=== PATIENT | female | born 1960 | race Caucasian/White ===

== ENCOUNTER → 2022-03-02 | Outpatient (CLI) | payer OTHER ==
--- NOTE | 2022-03-03 08:03 | MM ---
Reason for Exam: Screening (asymptomatic). Last mammogram was performed 1 year(s) and 11 month(s) ago. Patient History: Menarche at age 15. First Full-Term at age 20. Postmenopausal. Paternal aunt had breast cancer. Risk Values: Brittaney 5 year model risk: 1.2%. NCI Lifetime model risk: 5.7%. Prior Study Comparison: 11/22/2018 Right MG diagnostic mammo RT w CAD - 2, [facility]. 03/27/2020 Bilateral MG screening mammo w CAD - 2, [facility]. 04/10/2020 Right MG diagnostic mammo RT w CAD - 2, [facility]. Tissue Density: The breast tissue is heterogeneously dense. This may lower the sensitivity of mammography. Findings: Analyzed By CAD. Asymmetric nodular density upper outer right breast posterior one third requires additional evaluation. No suspicious calcifications are seen within either breast. Overall Assessment: Incomplete: need additional imaging evaluation, BI-RAD 0 Management: Diagnostic Mammogram of the right breast. A clinical breast exam by your physician is recommended on an annual basis and results should be correlated with mammographic findings. Electronically signed and approved by: Glynn Yap M.D. Radiologis
== END | disposition home or self-care (01) ==
LOC: MERGE 10:20 → RADMAMWWP 10:29
PROVIDERS: ATTEND Internal Medicine
DX: Z12.31 Encounter for screening mammogram for malignant neoplasm of breast (principal); Z78.0 Asymptomatic menopausal state; Z80.3 Family history of malignant neoplasm of breast
CPT/HCPCS: 77067

== ENCOUNTER → 2022-03-08 | Outpatient (CLI) | payer OTHER ==
--- NOTE | 2022-03-08 11:32 | MM ---
Reason for Exam: Additional evaluation requested from abnormal screening. Last screening mammogram was performed less than 1 month ago. Patient History: Menarche at age 15. First Full-Term at age 20. Postmenopausal. Paternal aunt had breast cancer. Risk Values: Brittaney 5 year model risk: 1.2%. NCI Lifetime model risk: 5.7%. Prior Study Comparison: 03/27/2020 Bilateral MG screening mammo w CAD - 2, [facility]. 04/10/2020 Right MG diagnostic mammo RT w CAD - 2, [facility]. 03/02/2022 Bilateral MG screening mammo w CAD, [facility]. Tissue Density: Right: The breast tissue is heterogeneously dense. This may lower the sensitivity of mammography. Findings: Analyzed By CAD. Persistent density upper outer collection fine compression. No suspicious calcifications. Overall Assessment: Incomplete: need additional imaging evaluation, BI-RAD 0 Management: Diagnostic Breast Ultrasound of the right breast. A clinical breast exam by your physician is recommended on an annual basis and results should be correlated with mammographic findings. This exam should not preclude additional follow-up of suspicious palpable abnormalities. Results were given to the patient verbally at the time of exam. Electronically signed and approved by: Ibrahima Beltrán M.D. Radiologis
--- NOTE | 2022-03-08 12:03 | USB ---
Reason for Exam: Additional evaluation requested from abnormal screening. Patient History: Menarche at age 15. First Full-Term at age 20. Postmenopausal. Paternal aunt had breast cancer. Risk Values: Brittaney 5 year model risk: 1.2%. NCI Lifetime model risk: 5.7%. Technique: Method: Targeted. Prior Study Comparison: 03/27/2020 Bilateral MG screening mammo w CAD - 2, [facility]. 04/10/2020 Right MG diagnostic mammo RT w CAD - 2, [facility]. 03/02/2022 Bilateral MG screening mammo w CAD, [facility]. Findings: The upper outer quadrant of the right breast was scanned. Finding 1: Simple cyst. Laterality: Right. Size 4 x 3 x 6 mm. 10 O'clock Quadrant: Upper outer. 6 cm cm from nipple. Shape: Round or Oval. Finding 2: Simple cyst. Laterality: Right. Size 4 x 2 x 3 mm. 12 O'clock Quadrant: Upper outer. 8 cm cm from nipple. Shape: Round or Oval. There is a 6 mm anechoic structure at the 10:00 position of the right breast There is a 4 mm anechoic structure oval well-circumscribed at the 12:00 position of the right breast. Overall Assessment: Suspicious, BI-RAD 4 Management: Ultrasound Core Biopsy of the right breast. A clinical breast exam by your physician is recommended on an annual basis and results should be correlated with mammographic findings. Electronically signed and approved by: Ibrahima Beltrán M.D. Radiologis
== END | disposition home or self-care (01) ==
LOC: RADMAMWWP 10:19
PROVIDERS: ATTEND Internal Medicine
DX: R92.8 Other abnormal and inconclusive findings on diagnostic imaging of breast (principal); Z78.0 Asymptomatic menopausal state; Z80.3 Family history of malignant neoplasm of breast
CPT/HCPCS: 77065

== ENCOUNTER → 2022-03-18 | Day surgery (SDC) | payer OTHER ==
--- NOTE | 2022-03-18 12:07 | MM ---
Reason for Exam: Post Procedure Mammogram. Last screening mammogram was performed less than 1 month ago. Patient History: Menarche at age 15. First Full-Term at age 20. Postmenopausal. Paternal aunt had breast cancer at or over age 50. Risk Values: Brittaney 5 year model risk: 1.2%. NCI Lifetime model risk: 5.7%. Prior Study Comparison: 04/10/2020 Right MG diagnostic mammo RT w [facility] - [address] [place] [address]. 03/02/2022 Bilateral MG screening mammo w [facility], [facility]. 03/08/2022 Right MG work up mamm w CAD RT, [facility]. Tissue Density: Right: The breast tissue is heterogeneously dense. This may lower the sensitivity of mammography. Findings: Biopsy clip is in the posterior 9:00 position right breast. This area corresponds to a density in the right breast previous mammograms. This may be a cyst, pathology is pending. Overall Assessment: Probably benign, BI-RAD 3 Management: Diagnostic Mammogram of the right breast in 6 months. Pathology is pending. Clinical management be based on the pathology. Follow-up mammogram can be performed in 6 months for benign concordant results A clinical breast exam by your physician is recommended on an annual basis and results should be correlated with mammographic findings. This exam should not preclude additional follow-up of suspicious palpable abnormalities. Results were given to the patient verbally at the time of exam. Electronically signed and approved by: Fabrizio Bond D.O. Radiologis
--- NOTE | 2022-03-28 11:55 | USB ---
Risk Values: Brittaney 5 year model risk: 1.2%. NCI Lifetime model risk: 5.7%. Prior Study Comparison: 04/10/2020 Right MG diagnostic mammo RT w [facility] - 2, [facility]. 03/02/2022 Bilateral MG screening mammo w [facility], [facility]. 03/08/2022 Right MG work up mamm w CAD RT, [facility]. Pathology Description: Location: 10 o'clock, upper outer quadrant, middle. Marker Left Behind. Cores: 3 Skin Nicks: 1 The procedure of ultrasound guided core biopsy was explained to the patient. Benefits, alternatives, and risks were discussed. An informed consent was then obtained. A timeout was performed. The patient was placed in supine positioning for imaging and for the procedure. The overlying skin was prepped and draped in usual sterile fashion. Lidocaine was used as anesthetic into the skin and subcutaneous tissue up to area of concern in the right breast. A small skin leon was made with surgical scalpel. Under ultrasound guidance, a 12-gauge vacuum assisted biopsy gun device was used to obtain 3 core samples. A biopsy clip was left in lesion. Wing core marker was placed. The patient tolerated the procedure well without any immediate complication. The patient was kept in the radiology department for short stay after the procedure and then discharged home in stable condition. Postprocedure mammogram: The patient was transferred to mammography for physician ordered post procedure mammogram for clip placement verification. Clip is in the expected location appears to correspond with prior mammographic and. Impression: Successful ultrasound guided core biopsy of area of concern in the right breast, full pathology results to follow. Recommendations: 1. Recommendations are pending pathology results. Pathology Results: Result: Benign, Fibrocystic change. RIGHT BREAST, 10:00 POSITION, CORE BIOPSY: Fibrocystic change with columnar cell change, focal fibrotic cyst lining and focal microcalcification. Current specimen negative for in situ or invasive carcinoma. Overall Assessment: Benign Management: Diagnostic Mammogram of the right breast in 6 months. Electronically signed and approved by: Fabrizio Bond D.O. Radiologis
== END ==
LOC: RADUSWWP 10:16
PROVIDERS: ATTEND Internal Medicine
DX: N60.11 Diffuse cystic mastopathy of right breast (principal); R92.8 Other abnormal and inconclusive findings on diagnostic imaging of breast
CPT/HCPCS: 88305; 77065; 19083; A4648

== ENCOUNTER → 2022-08-16 | Outpatient (CLI) | payer OTHER ==
--- NOTE | 2022-08-16 15:32 | CT ---
EXAMINATION TYPE: CT chest w con CT DLP: 247.1 mGycm, Automated exposure control for dose reduction was used. DATE OF EXAM: 08/16/2022 2:45 PM COMPARISON: None CLINICAL INDICATION:Female, 61 years old with history of R91.1 SOLITARY PULMONARY NODULE; [facility], TECHNIQUE: Multiple axial images were obtained through the chest following the administration of 100 cc of Isovue 300. Subsequently after injection there was contrast extravasation. Patient refused fanta tional attempt at injection. Examination was then done without contrast. FINDINGS: LUNGS/ PLEURA: No pneumothorax, pleural effusion, or focal consolidation. Left lower lobe 1.4 x 0.8 c m noncalcified pulmonary nodule (series 5, image 32). AIRWAY: Patent and unremarkable.. HEART: Size within normal limits. No pericardial effusion. MEDIASTINUM: No gross evidence of adenopathy. VASCULATURE: No aortic aneurysm. MUSCULOSKELETAL: No acute osseous abnormalities. Partial visualization of anterior cervical fusion valadez rdware. Mild multilevel degenerative disc disease. SOFT TISSUES/LYMPH NODES: Unremarkable. LOWER NECK: No significant findings. UPPER ABDOMEN: Contrast is demonstrated within both collecting systems from prior IV contrast demonst ration. IMPRESSION: Left lower lobe 1.4 cm pulmonary nodule. PET/CT is recommended.
== END | disposition home or self-care (01) ==
LOC: RADCTMAIN 13:55
PROVIDERS: ATTEND Internal Medicine Critical Care Medicine
DX: R91.1 Solitary pulmonary nodule (principal)
CPT/HCPCS: 71260; Q9967

== ENCOUNTER → 2022-09-14 | Outpatient (CLI) | payer OTHER ==
--- NOTE | 2022-09-14 14:36 | MM ---
Reason for Exam: Follow-up at short interval from prior study. Last screening mammogram was performed 6 month(s) ago. Patient History: Menarche at age 15. First Full-Term at age 20. Postmenopausal. 03/18/2022, Benign US biopsy breast VAD RT on the right side. Paternal aunt had breast cancer at or over age 50. Risk Values: Brittaney 5 year model risk: 1.5%. NCI Lifetime model risk: 6.7%. Prior Study Comparison: 03/02/2022 Bilateral MG screening mammo w CAD, [facility]. 03/08/2022 Right MG work up mamm w CAD RT, [facility]. 03/18/2022 Right MG diagnostic mammo RT wo CAD, [facility]. Tissue Density: Right: The breast tissue is heterogeneously dense. This may lower the sensitivity of mammography. Findings: Analyzed By CAD. Pattern appears stable. No significant interval change is evident. A core marker is within the right breast. Overall Assessment: Benign, BI-RAD 2 Management: Screening Mammogram of both breasts in 1 year. A clinical breast exam by your physician is recommended on an annual basis and results should be correlated with mammographic findings. This exam should not preclude additional follow-up of suspicious palpable abnormalities. Results were given to the patient verbally at the time of exam. Electronically signed and approved by: Fabrizio Bond D.O. Radiologis
== END | disposition home or self-care (01) ==
LOC: RADMAMWWP 12:37
PROVIDERS: ATTEND Internal Medicine
DX: N63.10 Unspecified lump in the right breast, unspecified quadrant (principal); Z78.0 Asymptomatic menopausal state; Z80.3 Family history of malignant neoplasm of breast
CPT/HCPCS: 77065

== ENCOUNTER → 2022-11-10 | Outpatient (CLI) | payer OTHER ==
--- NOTE | 2022-11-10 15:55 | USB ---
Reason for Exam: Follow-up at short interval from prior study. Patient History: Menarche at age 15. First Full-Term at age 20. Postmenopausal. 03/18/2022, Benign US biopsy breast VAD RT on the right side. Paternal aunt had breast cancer at or over age 50. Risk Values: Brittaney 5 year model risk: 1.5%. NCI Lifetime model risk: 6.7%. Technique: Method: Targeted. Prior Study Comparison: 03/08/2022 Right MG work up mamm w CAD RT, [facility]. 03/18/2022 Right MG diagnostic mammo RT wo CAD, [facility]. 09/14/2022 Right MG diagnostic mammo RT w CAD, [facility]. Findings: The upper outer quadrant of the right breast, the axilla of the right breast and the retroareolar of the right breast were scanned. Targeted ultrasound right breast upper outer quadrant 9:00 to 12:00 including the subareolar region and axilla. At the 12:00 position, 8 cm from the nipple, there is a 4 x 4 x 2 mm oval cyst now containing some internal debris. The previously biopsied 10:00 lesion, 6 cm from the nipple is no longer identified. No other solid or cystic lesion or axillary lymphadenopathy. Overall Assessment: Benign, BI-RAD 2 Management: Screening Mammogram of both breasts in 4 months. 1. Patient should continue monthly self breast exams. 2. A clinical breast exam by your physician is recommended on an annual basis. 3. This exam should not preclude additional follow-up of suspicious palpable abnormalities. Electronically signed and approved by: Anthony Jenkins M.D. Radiologist
== END | disposition home or self-care (01) ==
LOC: RADUSWWP 15:01
PROVIDERS: ATTEND Internal Medicine
DX: N63.10 Unspecified lump in the right breast, unspecified quadrant (principal); Z78.0 Asymptomatic menopausal state; Z80.3 Family history of malignant neoplasm of breast

== ENCOUNTER → 2023-02-07 | Outpatient (CLI) | payer OTHER ==
--- NOTE | 2023-02-09 08:48 | CT ---
EXAMINATION TYPE: CT chest w con DATE OF EXAM: 02/07/2023 COMPARISON: 08/16/2022 HISTORY: f/u pulmonary nodule CT DLP: 189.50 mGycm Automated exposure control for dose reduction was used. CONTRAST: CT scan of the chest is performed with IV Contrast, patient injected with 90 mL of Isovue 300. FINDINGS: LUNGS: Left lower lobe pulmonary nodule is noted to measure 1.5 x 0.8 cm versus 1.4 x 0.8 cm. There i s eccentric calcification noted. Consider PET/CT correlation as was recommended previously. No additi onal nodule is seen at this time. Parenchymal scarring right lower lobe. MEDIASTINUM: There are no greater than 1 cm hilar or mediastinal lymph nodes. No pericardial effusi on is seen. Thoracic aorta is of normal caliber. The heart is not enlarged. UPPER ABDOMEN: No significant abnormality appreciated. OTHER: No additional significant abnormality is seen. IMPRESSION: Left lower lobe pulmonary nodule is noted to measure 1.5 x 0.8 cm versus 1.4 x 0.8 cm. There is eccen tric calcification noted. Consider PET/CT correlation as was recommended previously.
== END | disposition home or self-care (01) ==
LOC: RADCTMAIN 14:02
PROVIDERS: ATTEND Internal Medicine Critical Care Medicine
DX: R91.1 Solitary pulmonary nodule (principal)
CPT/HCPCS: 71260; Q9967

== ENCOUNTER → 2023-03-16 | Outpatient (CLI) | payer OTHER ==
--- NOTE | 2023-03-17 08:41 | MR ---
EXAMINATION TYPE: MR lumbar spine wo con DATE OF EXAM: 03/16/2023 COMPARISON: None HISTORY: Low back pain from shoulder blades down to bottom of back. TECHNIQUE: Multiplanar, multisequence images of the lumbar spine were acquired without IV contrast. FINDINGS: Lumbar segments are intact. No paraspinal masses are identified. Conus medullaris has a normal appe arance. Multilevel disc desiccation. T12-L1: Right central disc protrusion with mild effacement of anterior thecal sac. Foramina are paten t bilaterally. L1-L2: Normal disc appearance without desiccation. No herniation, protrusion or disc bulging. No ca nal stenosis is present. Foramina are patent bilaterally. L2-L3: No herniation, protrusion or disc bulging. No canal stenosis is present. The lateral facet a rthropathy. Foramina are patent bilaterally. L3-L4: Broad-based disc bulge with ligamentum flavum buckling and facet arthropathy contribute to mil d to moderate spinal canal stenosis. Mild bilateral neural foraminal stenosis. L4-L5: Right foraminal disc protrusion. Bilateral facet arthropathy and ligament flavum buckling. No significant central canal stenosis. Mild left and moderate right neural foraminal stenosis. L5-S1: No herniation, protrusion or disc bulging. No canal stenosis is present. Bilateral facet arth ropathy. Foramina are patent bilaterally. IMPRESSION: 1. T12-L1 and L4-L5 disc herniation as described above. 2. Multilevel facet arthropathy most pronounced at L3-L4 with mild to moderate spinal canal stenosis .
== END | disposition home or self-care (01) ==
LOC: RADMRIMAIN 13:04
PROVIDERS: ATTEND Orthopaedic Surgery
DX: M47.816 Spondylosis without myelopathy or radiculopathy, lumbar region (principal); M51.25 Other intervertebral disc displacement, thoracolumbar region; M48.061 Spinal stenosis, lumbar region without neurogenic claudication
CPT/HCPCS: 72148

== ENCOUNTER → 2023-07-06 | Outpatient (CLI) | payer OTHER ==
[2023-07-06 14:36] VITALS: BP 123/82; PULSE 103; RESP 16; TEMP 97.6
--- NOTE | 2023-07-06 14:42 | P.PAINPG ---
Objective - Vital Signs Vital signs: Intake & Output 07/05/23 07/06/23 07/06/23 18:59 06:59 18:59 Weight 63.503 kg PQRS Measure Charge Sheet Comment: HISTORY OF PRESENT ILLNESS: A 62 yr old female as a referral from [facility] presents today w severe and chronic LBP x 5 mo secondary to DDD, spondylosis and facet arthropathy without myelopathy for evaluation. Pt states pain level is provoked at 7/10 in intensity, constant, localized in the R lower lumbar spine, predominantly axial, achy in character w occasional shooting pain towards the back of the RLE. Pain is provoked by lifting. Pain is alleviated by PT years ago, physician guided exercises & stretches x 6 mo, chiropractic treatments monthly for years which ended 6 mo ago, heat, ice, medications (Neurontin, Flexeril, Ibu), repositioning and rest. Oswestry axial pain score at 18. PMH: OA, GERD, Hyperlipidemia PSH: Denies SH: Negative x3 FH: Non contributory All: See list Meds: See list REVIEW OF ORGAN SYSTEMS: CONSTITUTIONAL: No fevers or chills. No recent weight loss. NEUROLOGICAL: + numbness and tingling along the distal extremities. No seizure disorders or headaches. MUSCULOSKELETAL: + pain PSYCHIATRIC: Denies current depression or suicidal thoughts. Physical Examinations : Constitutional : Cooperative , not in acute distress . Neurologic : Cranial nerve II to XII intact. No focal neurological deficits. Psychiatric : alert & oriented x 3. Matching mood & appropriate affect. Judgment & insight intact. Musculoskeletal : Cervical Spine Motor strength in the deltoid and biceps: Normal right side. Normal Left side Motor strength biceps and the wrist extensors: Normal right side . Normal left side Motor strength in the triceps muscle: Normal right side. Normal left side Deep tendon reflexes: Normal at the biceps. Normal at Brachioradialis. Normal at triceps Vertebral body tenderness to deep palpation over Cervical facet loading test: positive bilaterally Spurling test: positive bilaterally Neck distraction test: positive bilaterally Izabel sign: positive bilaterally Lumbar spine Motor strength lower extremities ,thigh and legs 5/5 Right side , 5/5 Left side Deep tendon reflexes : Normal Knee Jerk. Normal Ankle Jerk Vertebral body tenderness over L3 Donohue Test positive over L3-L4 Lumbar facet Loading Test: positive Right / positive Left Range of motion of the lumbar spine Flexion 30 degrees, extension 10 degrees Straight Leg Raise test: Left/ Right positive at degree Eladio test: positive right / positive left. Severe tenderness over the Sacroiliac joint on the Right / Left sides Gaenslen test: positive bilaterally Seated flexion test: positive bilaterally. Sacral spine : Severe tenderness over the Sacroiliac joint: right side / left side Range of motion: Flexion of the lumbar spine <60 degrees Range of motion: Extension of the lumbar spine <20 degrees Gaenslen's Test positive Eladio test: positive right side / left side Thigh Thrust Test Sacral Thrust Test Imaging: MRI noncontrast of the lumbar spine from 03/16/23 reviewed Assessment/ Plan : Lumbar DDD Recommendation of R TFESI L3-L4 #1. May need a series of injections for optimal pain relief. Risks, benefits of procedure discussed and patient verbalized understanding. Admits to anti- coagulant use or medical history of diabetes. Protocol for discontinuation/ continuation of medications dena procedure discussed. Minimal anesthesia provided, if clinically indicated, consisting of Versed and Fentanyl. All questions answered. I have spent greater than 30 minutes on patient care today. Dr Olguin was available by phone for the evaluation of this patient. The time was used to review the medical records including relevant urine studies and Prescription history (MAPs), review of the available imaging, evaluation and examination of the patient, coordination of care with the medical staff and if applicable referring physicians, as well as creation of the medical record Home Medications: Ambulatory Orders Albuterol Inhaler [Ventolin Hfa Inhaler] 1 - 2 puff INHALATION RT-Q6H PRN 03/11/22 Albuterol Sulfate [Proair Hfa] 1 - 2 puff INHALATION Q6HR PRN 03/11/22 Atorvastatin [Lipitor] 10 mg PO DAILY 03/11/22 Benzonatate [Tessalon Perles] 100 mg PO TID PRN 03/11/22 Celecoxib [CeleBREX] 100 mg PO BID 03/11/22 Cetirizine HCl [Zyrtec] 10 mg PO DAILY 03/11/22 Citalopram Hydrobromide [CeleXA] 20 mg PO DAILY 03/11/22 Famotidine [Pepcid] 20 mg PO HS 03/11/22 Fluticasone Nasal [place] [Flonase Nasal [place]] 1 spray EA NOSTRIL DAILY 03/11/22 Fluticasone Propionate [Flonase Allergy Relief] 1 spray EA NOSTRIL DAILY 03/11/22 Gabapentin [Neurontin] 300 mg PO TID 03/11/22 Ibuprofen [Motrin] 600 mg PO Q8HR PRN 03/11/22 Montelukast [Singulair] 10 mg PO DAILY 03/11/22 Tiotropium 18 Mcg/Puff [Spiriva] 1 puff INHALATION DAILY 03/11/22 oxyBUTYnin chloride [Ditropan] 5 mg PO DAILY 03/11/22 Controlled Substance Measures - Controlled Substance Measures Is patient prescribed a controlled substance at discharge?: No
== END ==
LOC: PNWHC3 13:37
PROVIDERS: ATTEND Specialist
DX: M51.16 Intervertebral disc disorders with radiculopathy, lumbar region (principal); M51.26 Other intervertebral disc displacement, lumbar region; M19.90 Unspecified osteoarthritis, unspecified site; K21.9 Gastro-esophageal reflux disease without esophagitis; E78.5 Hyperlipidemia, unspecified
CPT/HCPCS: 99211

== ENCOUNTER 2023-08-29 12:23 | Day surgery (SDC) | payer OTHER ==
[~2023-08-29 12:23] MED LIST: LACTATED RINGERS 1,000 ML IV SCH
[2023-08-29 12:40] VITALS: TEMP 97.8
[2023-08-29] MEDS ORDERED: methylPREDNISolone ACETATE 80 MG/ML 1 ML VIAL ONE (12:58)
[2023-08-29] MEDS ORDERED: IOPAMIDOL M200 10 ML VIAL ONE (12:58)
--- NOTE | 2023-08-29 13:05 | P.PCN ---
Date of Procedure: 08/29/23 Procedure(s) Performed: PREOPERATIVE DIAGNOSIS: 1- Lumbar Degenerative Disc Diseases 2-Lumbar spondylosis with Facet arthropathy without myelopathy. 3-lumbar spinal stenosis POSTOPERATIVE DIAGNOSIS: 1-lumbar degenerative disc disease. 2-lumbar spondylosis with facet arthropathy without myelopathy. 3-lumbar spinal stenosis. PROCEDURE 1. Lumbar epidural steroid injection under fluoroscopic guidance at the L3-4 level. (Fluoroscopy imaging was available in radiology department) 2. Lumbar epidurogram. ANESTHESIA: Lidocaine 1% 3 and then only. EBL: Minimal PROCEDURE INDICATION: The patient with low back pain and radiculitis symptoms unresponsive to conservative treatment. Fluoroscopy was used to optimize visualization of the needle placement and to maximize safety. PROCEDURE DESCRIPTION / TECHNIQUE: The patient was seen and identified in the preoperative area. Risks, benefits, complications including but not limited to infections ,bleeding ,allergic reaction to the medications ,nerve damage and not complete pain releife , and alternatives were discussed with the patient. The patient agreed to proceed with the procedure and signed the consent, and vital signs were stable. Patient was taken to the OR and time out was completed. The patient was placed in the prone position on procedure table and a pillow was placed under the abdomen to reduce lumbar lordosis. The lumbosacral area was prepped and draped in the usual sterile fashion.ere closely monitored during the procedure. Vital signs was monitered during the entire procedure. Using anterior-posterior fluoroscopy, the L3-4 interlaminar space was identified and the skin over this site was marked and then infiltrated with 1% lidocaine subcutaneously. Subsequently, a 20-gauge Tuohy epidural needle was inserted and advanced toward the epidural space using the ``Loss of resistance technique and guided by AP and lateral fluoroscopy. The correct needle position in the epidural space was verified with the injection of 2 mL of the water soluble contrast dye Isovue 200 contrast and observing an excellent epidurogram with the epidural spread of the dye, after negative aspiration for blood and CSF and in the absence of paresthesias. Again after negative aspiration, a 6 ml mixture containing 80 mg of Depo-medrol ( Preservetive Free ), and 2 ml of preservative free Normal Saline, and 2 ml of preservative free lidocaine 1% solution was injected and a washout of epidurogram was seen. Needle was withdrawn intact, skin was cleansed, and bandages were applied. COMPLICATIONS: None DISPOSITION / PLANS: The patient was placed in a supine position and transferred to the recovery area in a stable condition for observation. There was no evidence of lower extremity motor or sensory deficit after the procedure. Patient was discharged from the recovery room after meeting discharge criteria. Home discharge instructions were given to the patient by the staff. The patient was reexamined prior to discharge. The patient will schedule a follow up in the clinic in 2-4 weeks.
[2023-08-29 13:53] VITALS: BP 112/69; PULSE 88; RESP 20
--- NOTE | 2023-08-29 16:57 | FL ---
Fluoroscopy INDICATION: Pain FINDINGS: Fluoroscopy time: 3.4 seconds. Total dose area product (DAP) in uGy*m?, mGy*cm? (or similar): 0.72318 Images obtained: 3. IMPRESSION: 1. Documentation of fluoroscopy.
== END 2023-08-29 13:40 | disposition home or self-care (01) ==
LOC: ORPAIN 12:23
PROVIDERS: ATTEND Specialist
DX: M47.816 Spondylosis without myelopathy or radiculopathy, lumbar region (principal); M48.061 Spinal stenosis, lumbar region without neurogenic claudication; M51.36 Other intervertebral disc degeneration, lumbar region
CPT/HCPCS: 62323; J1040; Q9966

== ENCOUNTER → 2023-09-13 | Outpatient (CLI) | payer OTHER ==
--- NOTE | 2023-09-13 14:16 | P.PAINPG ---
PQRS Measure Charge Sheet Comment: HISTORY OF PRESENT ILLNESS: A 62 yr old female presents today w severe and chronic LBP x 5 mo secondary to DDD, spondylosis and facet arthropathy without myelopathy for evaluation s/p TONY L3-L4 #1. Pt states she experienced 90 % pain relief x 3 wks s/p procedure. Pt states pain level is provoked at 3/10 in intensity, constant, localized in the R lower lumbar spine, predominantly axial, achy in character without shooting pain. Pain is provoked by lifting. Pain is alleviated by PT years ago, physician guided exercises & stretches x 6 mo, chiropractic treatments monthly for years which ended 6 mo ago, heat, ice, medications, repositioning and rest. Oswestry axial pain score at 18. Interventional procedures include TONY L3-L4 x1 Medications include Neurontin, Flexeril, Ibu REVIEW OF ORGAN SYSTEMS: CONSTITUTIONAL: No fevers or chills. No recent weight loss. NEUROLOGICAL: + numbness and tingling along the distal extremities. No seizure disorders or headaches. MUSCULOSKELETAL: + pain PSYCHIATRIC: Denies current depression or suicidal thoughts. Physical Examinations : Constitutional : Cooperative , not in acute distress . Neurologic : Cranial nerve II to XII intact. No focal neurological deficits. Psychiatric : alert & oriented x 3. Matching mood & appropriate affect. Judgment & insight intact. Musculoskeletal : Cervical Spine Motor strength in the deltoid and biceps: Normal right side. Normal Left side Motor strength biceps and the wrist extensors: Normal right side . Normal left side Motor strength in the triceps muscle: Normal right side. Normal left side Deep tendon reflexes: Normal at the biceps. Normal at Brachioradialis. Normal at triceps Vertebral body tenderness to deep palpation over Cervical facet loading test: positive bilaterally Spurling test: positive bilaterally Neck distraction test: positive bilaterally Izabel sign: positive bilaterally Lumbar spine Motor strength lower extremities ,thigh and legs 5/5 Right side , 5/5 Left side Deep tendon reflexes : Normal Knee Jerk. Normal Ankle Jerk Vertebral body tenderness over L3 Donohue Test positive Lumbar facet Loading Test: positive Right / positive Left Range of motion of the lumbar spine Flexion 30 degrees, extension 10 degrees Straight Leg Raise test: Left/ Right positive at degree Eladio test: positive right / positive left. Severe tenderness over the Sacroiliac joint on the Right / Left sides Gaenslen test: positive bilaterally Seated flexion test: positive bilaterally. Sacral spine : Severe tenderness over the Sacroiliac joint: right side / left side Range of motion: Flexion of the lumbar spine <60 degrees Range of motion: Extension of the lumbar spine <20 degrees Gaenslen's Test positive Eladio test: positive right side / left side Thigh Thrust Test Sacral Thrust Test Imaging: MRI noncontrast of the lumbar spine from 03/16/23 reviewed Assessment/ Plan : Lumbar DDD Will manage residual pain and may RTC on an as needed basis. All questions answered. I have spent greater than 30 minutes on patient care today. Dr Olguin was available by phone for the evaluation of this patient. The time was used to r eview the medical records including relevant urine studies and Prescription history (MAPs), review of the available imaging, evaluation and examination of the patient, coordination of care with the medical staff and if applicable referring physicians, as well as creation of the medical record PQRS Narrative: Hx Alcohol Use (MH) Yes Home Medications: Ambulatory Orders Albuterol Inhaler [Ventolin Hfa Inhaler] 1 - 2 puff INHALATION RT-Q6H PRN 03/11/22 Atorvastatin [Lipitor] 10 mg PO DAILY 03/11/22 Celecoxib [CeleBREX] 200 mg PO BID 03/11/22 Citalopram Hydrobromide [CeleXA] 20 mg PO DAILY 03/11/22 Famotidine [Pepcid] 20 mg PO HS 03/11/22 Gabapentin [Neurontin] 300 mg PO TID 03/11/22 Ibuprofen [Motrin] 600 mg PO Q8HR PRN 03/11/22 oxyBUTYnin chloride [Ditropan] 5 mg PO DAILY 03/11/22 Allergy Relief 10 mg PO DAILY 07/20/23 Cyclobenzaprine [Flexeril] 10 mg PO TID PRN 07/20/23 Fluticasone/Umeclidin/Vilanter [Trelegy Ellipta 200-62.5-25] 1 puff INHALATION DAILY 07/20/23 Omeprazole 20 mg PO DAILY 07/20/23 Unk Fluticasone [place] 1 spray NASAL DAILY 08/25/23 Controlled Substance Measures - Controlled Substance Measures Is patient prescribed a controlled substance at discharge?: No
[2023-09-13 14:32] VITALS: BP 130/79; PULSE 97; RESP 16
== END ==
LOC: PNWHC3 13:28
PROVIDERS: ATTEND Specialist
DX: M51.36 Other intervertebral disc degeneration, lumbar region (principal); F12.90 Cannabis use, unspecified, uncomplicated
CPT/HCPCS: 99211

== ENCOUNTER → 2023-09-15 | Outpatient (CLI) | payer OTHER ==
--- NOTE | 2023-09-15 15:12 | CT ---
EXAMINATION TYPE: CT chest w con DATE OF EXAM: 09/15/2023 COMPARISON: 02/07/2023 HISTORY: Follow-up left pulmonary nodule Automated exposure control for dose reduction was used. TECHNIQUE: Multiple axial images are obtained through the thorax following the uneventful administration of selin onic IV contrast material. FINDINGS: The left lower lobe pulmonary nodule has grown from 7.7 x 15.5 mm to 9.6 x 16.8 mm. It is suspicious for malignancy and therefore PET scan and/or CT-guided fine-needle biopsy is recommended. No other lung nodules are seen. There is no abnormal airspace/consolidative density or abnormal interstitial density. No pleural effusion or pneumothorax. The great vessels are normal and is no mediastinal, hilar or axillary adenopathy. No focal osseous lesions are seen. IMPRESSION: Growing left lower lobe pulmonary nodule, suspicious for malignancy. BI-RADS Category 4 ex. PET scan and/or CT guided fine needle aspiration is recommended.
== END | disposition home or self-care (01) ==
LOC: RADCTMAIN 12:20
PROVIDERS: ATTEND Internal Medicine Critical Care Medicine
DX: R91.1 Solitary pulmonary nodule (principal)
CPT/HCPCS: 71260; Q9967

== ENCOUNTER → 2023-09-19 | Outpatient (CLI) | payer OTHER ==
--- NOTE | 2023-09-20 19:59 | MM ---
Reason for Exam: Screening (asymptomatic). Last mammogram was performed 1 year(s) and 6 month(s) ago. Patient History: Menarche at age 15. First Full-Term at age 20. Postmenopausal. 03/18/2022, Benign US biopsy breast VAD RT on the right side. Paternal aunt had breast cancer at or over age 50. Risk Values: Brittaney 5 year model risk: 1.5%. NCI Lifetime model risk: 6.5%. Prior Study Comparison: 03/08/2022 Right MG work up mamm w CAD RT, [facility]. 03/18/2022 Right MG diagnostic mammo RT wo CAD, [facility]. 09/14/2022 Right MG diagnostic mammo RT w CAD, [facility]. Tissue Density: There are scattered fibroglandular densities. Findings: Analyzed By CAD. Microclip right breast from prior biopsy. Additional chronic nodularity on the right. There is no suspicious group of microcalcifications or new suspicious mass in either breast. Overall Assessment: Benign, BI-RAD 2 Management: Screening Mammogram of both breasts in 1 year. . Patient should continue monthly self-breast exams. A clinical breast exam by your physician is recommended on an annual basis. This exam should not preclude additional follow-up of suspicious palpable abnormalities. Note on Brittaney scores and lifetime risk: 1. A Brittaney score greater than 3% is considered moderate risk. If this is the case, consider specialist referral to assess eligibility for a risk reducing agent. 2. If overall lifetime risk for the development of breast cancer is 20% or higher, the patient may qualify for future screening with alternating mammogram and breast MRI. Electronically signed and approved by: Anthony Jenkins M.D. Radiologist
== END | disposition home or self-care (01) ==
LOC: RADMAMWWP 14:45
PROVIDERS: ATTEND Family Medicine
DX: Z12.31 Encounter for screening mammogram for malignant neoplasm of breast (principal); Z80.3 Family history of malignant neoplasm of breast; Z78.0 Asymptomatic menopausal state
CPT/HCPCS: 77063; 77067

== ENCOUNTER → 2024-02-19 | Outpatient (CLI) | payer OTHER ==
--- NOTE | 2024-02-19 12:30 | US ---
EXAMINATION TYPE: US gallbladder DATE OF EXAM: 02/19/2024 COMPARISON: Chest CT CLINICAL INDICATION: Female, 63 years old with history of R10.11 Right upper quadrant pain; Pt states RUQ pain TECHNIQUE: Multiple sonographic images of the right upper quadrant are obtained. 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
--- NOTE | 2024-02-19 12:50 | BD ---
EXAMINATION TYPE: Axial Bone Density DATE OF EXAM: 02/19/2024 CLINICAL HISTORY: 63 years old Female. ICD-10 CODE: Z78.0ASYMPTOMATIC MENOPAUSAL STATE Height: 63 Weight: 143.6 FRAX RISK QUESTIONS: Alcohol (3 or more units per day): no Family History (Parent hip fracture): no Glucocorticoids (More than 3mos): no (Ex: prednisone, prednisolone, methylprednisolone, dexamethasone, and hydrocortisone). History of Fracture in Adulthood: yes Secondary Osteoporosis: 1. Type 1 Diabetes: no 2. Hyperthyroidism: no 3. Menopause before 45: yes 4. Malnutrition: no 5. Chronic liver disease: no Rheumatoid Arthritis: no Current Tobacco Use: yes RISK FACTORS HISTORY OF: Spine Fracture: c spine When: age 39 Surgery to Spine/Hip(right/left)/Wrist (right/left): no EXAM MEASUREMENTS: Bone mineral densitometry was performed using the [employer] System. Bone mineral density as measured about the Lumbar spine is: ----- L1-L4(G/cm2): 0.996 T Score Values are as follows: ----- L1: -1.8 ----- L2: -2.8 ----- L3: -1.4 ----- L4: -0.6 ----- L1-L4: -1.5 Z Score Values are as follows: ----- L1: -0.3 ----- L2: -1.3 ----- L3: 0.1 ----- L4: 0.9 ----- L1-L4: 0.0 Bone mineral density : baseline Bone mineral density about the R hip (g/cm2): 0.807 Bone mineral density about the L hip (g/cm2): 0.783 T Score values are as follows: -----R Neck: -2.2 -----L Neck: -2.1 -----R Total: -1.6 -----L Total: -1.8 Z Score values are as follows: -----R Neck: -0.8 -----L Neck: -0.7 -----R Total: -0.5 -----L Total: -0.6 Bone mineral density : baseline FRAX%s: The graph provided illustrates a 19.8% chance for a major osteoporotic fx and a 5.4% chance f or the hips probability for fx in 10 years time. IMPRESSION: Osteopenia (T Score between -2.5 and -1). There is slightly increased risk of fracture and the patient may be considered for treatment. Re-Screen 2-5 years. NOTE: T-SCORE=SD OF THE YOUNG ADULT MEAN.
== END | disposition home or self-care (01) ==
LOC: RADUSWWP 09:19
PROVIDERS: ATTEND Obstetrics & Gynecology
DX: M85.89 Other specified disorders of bone density and structure, multiple sites (principal); R10.11 Right upper quadrant pain; Z78.0 Asymptomatic menopausal state
CPT/HCPCS: 76705; 77080; 82378; 86304

== ENCOUNTER → 2024-04-02 | Outpatient (CLI) | payer OTHER ==
--- NOTE | 2024-04-27 20:04 | CT ---
Patient: Gely Jimenez A Ordering Physician: Unknown, Unknown ID: [id number] Phone, Pager: Gaby ne: N/A Pager: N/A : 1960 Age/Gender: 63Y, F Primary Location: N/A Procedure: CT Chest w Cont rast Study Date: 04/02/2024 11:11:00 AM EXAMINATION TYPE: CT chest w con CT DLP: 211 mGycm, Automated exposure control for dose reduction was used. DATE OF EXAM: 04/08/2024 5:24 PM COMPARISON: 09/15/2023, 02/07/2023 CLINICAL INDICATION: Lung nodule, history of pancreatic cancer TECHNIQUE: Multiple axial images were obtained through the chest. Sagittal and coronal reformats were created for review. Contrast used: mL of (None if empty) Oral contrast used: (None if empty) FINDINGS: LUNGS/ PLEURA: Stable left lower lung pulmonary nodule measuring 15 x 9 mm, previously 15 x 9 mm. No new or enlarging pulmonary nodule. No focal consolidation, pneumothorax or pleural effusion. AIRWAY: Patent and unremarkable. HEART: Size within normal limits. MEDIASTINUM: No gross evidence of adenopathy. VASCULATURE: No aortic aneurysm. MUSCULOSKELETAL: No acute osseous abnormalities SOFT TISSUES/LYMPH NODES: Unremarkable. LOWER NECK: No significant findings. UPPER ABDOMEN: No significant findings. IMPRESSION: Stable left lower lobe pulmonary nodule likely back to 02/07/2023 given differences in kay suring technique and slice flexion. No new or enlarging pulmonary nodules. No lymphadenopathy.
== END | disposition home or self-care (01) ==
LOC: RADCTMAIN 10:55
PROVIDERS: ATTEND Internal Medicine Critical Care Medicine
DX: R91.1 Solitary pulmonary nodule (principal); Z85.07 Personal history of malignant neoplasm of pancreas
CPT/HCPCS: 71260; Q9967

== ENCOUNTER → 2024-10-17 | Outpatient (CLI) | payer OTHER ==
--- NOTE | 2024-10-17 11:38 | MM ---
Reason for Exam: Screening (asymptomatic). Last mammogram was performed 1 year(s) and 1 month(s) ago. Patient History: Menarche at age 15. First Full-Term at age 20. Postmenopausal. 03/18/2022, Benign US biopsy breast VAD RT on the right side. Paternal aunt had breast cancer at or over age 50. Risk Values: Brittaney 5 year model risk: 1.6%. NCI Lifetime model risk: 6.3%. Prior Study Comparison: 03/18/2022 Right MG diagnostic mammo RT wo CAD, [facility]. 09/14/2022 Right MG diagnostic mammo RT w CAD, [facility]. 09/19/2023 Bilateral MG 3D screening mammo w/cad, [facility]. Tissue Density: There are scattered areas of fibroglandular density. Findings: Analyzed By CAD. Right breast biopsy clip. Right breast: There is no suspicious group of microcalcifications or new suspicious mass. Benign-appearing calcifications right breast. Left breast: There is no suspicious group of microcalcifications or new suspicious mass. Benign-appearing calcifications left breast. Overall Assessment: Benign, BI-RAD 2 Management: Screening Mammogram of both breasts in [address] [facility] will attempt to contact patient to return for supplemental views and ultrasound if indicated. Patient should continue monthly self-breast exams. A clinical breast exam by your physician is recommended on an annual basis. This exam should not preclude additional follow-up of suspicious palpable abnormalities. Note on Brittaney scores and lifetime risk: 1. A Brittaney score greater than 3% is considered moderate risk. If this is the case, consider specialist referral to assess eligibility for a risk reducing agent. 2. If overall lifetime risk for the development of breast cancer is 20% or higher, the patient may qualify for future screening with alternating mammogram and breast MRI. [facility], , 10/17/2024 11:34 AM. Electronically signed and approved by: Yonathan Ty DO
== END | disposition home or self-care (01) ==
LOC: RADMAMWWP 11:01
PROVIDERS: ATTEND Family Medicine
DX: Z12.31 Encounter for screening mammogram for malignant neoplasm of breast (principal); R92.323 Mammographic fibroglandular density, bilateral breasts; Z78.0 Asymptomatic menopausal state; Z80.3 Family history of malignant neoplasm of breast
CPT/HCPCS: 77067